=== PATIENT | male | born 1965 | race African-American/Black ===

== ENCOUNTER 2024-02-27 09:05 | Emergency (ER) | payer MEDICARE, MEDICAID ==
[~2024-02-27] VITALS: Ht 182.9 cm; Wt 82.0 kg
[~2024-02-27 09:05] MED LIST: CHOL1CAP15; DOCU250C69 PO; FERR325T6 PO; PHEN30TA50 PO
[2024-02-27 09:06] VITALS: O2SAT 97
[2024-02-27 09:53] LABS: BASOPHILS % 0.6 % (0.0-2.0); EOSINOPHILS % 0.1 % (0.0-5.0); HEMATOCRIT. 27.6 % (42.0-52.0); HEMOGLOBIN. 9.3 g/dL (14.0-18.0); LYMPHOCYTES % 18.6 % (20.0-50.0); MEAN CORPUSCULAR HEMOGLOBIN 30.2 pg (28.0-32.0); MEAN CORPUSCULAR HGB CONC 33.7 g/dL (31.0-37.0); MEAN CORPUSCULAR VOLUME 89.6 fL (80.0-94.0); MEAN PLATELET VOLUME 8.5 fl (7.4-10.4); MONOCYTES % 14.7 % (2.0-8.0); PLATELET 376 x1000/uL (130-400); RED BLOOD CELL COUNT 3.08 mill/uL (4.7-6.1); WHITE BLOOD COUNT 7.1 x1000/uL (4.5-11.0)
[2024-02-27] MEDS: LEVETIRACETAM 500MG PREMIX 100 ML IV ONE (09:53)
[2024-02-27 10:07] LABS: CHLORIDE 102 mEq/L (98-107); SODIUM 136 mEq/L (136-145)
[2024-02-27 10:09] LABS: CALCIUM 8.3 mg/dL (8.7-10.4)
[2024-02-27 10:11] LABS: ALANINE AMINOTRANSFERASE 60 IU/L (10-49); ASPARTATE AMINOTRANSFERASE 50 IU/L (<34)
[2024-02-27 10:12] LABS: ALBUMIN 3.8 g/dL (3.2-4.8)
[2024-02-27 10:13] LABS: CREATININE 0.7 mg/dL (0.6-1.3); GLUCOSE 101 mg/dL (70-105); UREA NITROGEN BLOOD 14 mg/dL (9-23)
[2024-02-27 10:16] LABS: BILIRUBIN TOTAL 0.2 mg/dL (0.1-1.0); PROTEIN TOTAL 7.8 g/dL (6.0-8.3)
[2024-02-27 10:51] LABS: CARBON DIOXIDE 25 mEq/L (21-32)
[2024-02-27] MEDS: LORAZEPAM 2MG/ML INJ IV ONE (12:33)
[2024-02-27] MEDS ORDERED: POTASSIUM CHLORIDE 20MEQ/PACKET PO ONE (13:30)
[2024-02-27 14:19] VITALS: BP 123/73; PULSE 90; RESP 12; TEMP 98.8
== END 2024-02-27 16:19 | disposition home or self-care (01) ==
LOC: ER 09:06
DX: R56.9 Unspecified convulsions (principal); E87.6 Hypokalemia; D64.9 Anemia, unspecified; E78.00 Pure hypercholesterolemia, unspecified; I10 Essential (primary) hypertension; Z86.73 Personal history of transient ischemic attack (TIA), and cerebral infarction without residual deficits
CPT/HCPCS: 99291; 96365; 70450; 96375; 80053; 85025; 36415; J1953; J2060